=== PATIENT | female | born 1995 | race Caucasian/White ===

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

== ENCOUNTER → 2017-04-12 | Outpatient (CLI) | payer MEDICAID ==
[~2017-04-12] MED LIST changes: +DOCU100C37 PO; +IBUP-1780 PO; +OXYC-465 PO
[2017-04-12 09:50] LABS: PROTEIN/CREATININE RATIO 0.18
== END ==
LOC: LABNPT 08:30
PROVIDERS: ATTEND Obstetrics & Gynecology
DX: Z34.03 Encounter for supervision of normal first pregnancy, third trimester (principal); Z3A.00 Weeks of gestation of pregnancy not specified
CPT/HCPCS: 82570; 84156

== ENCOUNTER 2017-04-17 14:25 | Outpatient (CLI) | payer MEDICAID ==
[~2017-04-17] VITALS: Ht 167.6 cm; Wt 87.6 kg
[2017-04-17 14:20] VITALS: BP 119/73
[~2017-04-17 14:25] MED LIST changes: -DOCU100C37 PO; -IBUP-1780 PO; -OXYC-465 PO
[2017-04-17 14:40] VITALS: BP 125/77
[2017-04-17 15:00] VITALS: BP 120/75
[2017-04-17] MEDS ORDERED: D5 LR IV SOLUTION 1,000 ML IV ONE (15:00)
[2017-04-17] MEDS ORDERED: LOPERAMIDE 2 MG (IMODIUM) CAP PO PRN (15:00)
[2017-04-17 15:45] LABS: BASOPHILS % (AUTO) 0 % (0-10); EOSINOPHILS # (AUTO) 0.2 10^3/uL (0.0-0.3); EOSINOPHILS % (AUTO) 2 % (0-10); LYMPHOCYTES # (AUTO) 1.6 X 10^3 (1.0-4.0); LYMPHOCYTES % (AUTO) 16 % (12-44); MEAN CORPUSCULAR HEMOGLOBIN 29 PG (25-34); MEAN CORPUSCULAR HGB CONC 32 G/DL (32-36); MEAN CORPUSCULAR VOLUME 89 FL (80-99); MEAN PLATELET VOLUME 11.2 FL (7.4-10.4); MONOCYTES % (AUTO) 10 % (0-12); NEUTROPHILS # (AUTO) 7.2 X 10^3 (1.8-7.8); NEUTROPHILS % (AUTO) 71 % (42-75); PLATELET COUNT 215 10^3/uL (130-400); RED BLOOD COUNT 3.54 10^6/uL (4.35-5.85); WHITE BLOOD COUNT 10.1 10^3/uL (4.3-11.0)
[2017-04-17 15:50] VITALS: BP 126/77
[2017-04-17 16:02] LABS: ALANINE AMINOTRANSFERASE 7 U/L (0-55); ALBUMIN 3.2 GM/DL (3.2-4.5); ANION GAP 10 MMOL/L (5-14); ASPARTATE AMINO TRANSFERASE 14 U/L (5-34); BILIRUBIN,TOTAL 0.2 MG/DL (0.1-1.0); BLOOD UREA NITROGEN 9 MG/DL (7-18); BUN/CREATININE RATIO 13; CALCIUM 8.9 MG/DL (8.5-10.1); CARBON DIOXIDE 20 MMOL/L (21-32); CHLORIDE 110 MMOL/L (98-107); CREATININE SERUM 0.69 MG/DL (0.60-1.30); GFR ESTIMATED > 60; GLUCOSE 86 MG/DL (70-105); POTASSIUM 3.8 MMOL/L (3.6-5.0); SODIUM 140 MMOL/L (135-145); TOTAL PROTEIN 6.2 GM/DL (6.4-8.2)
[2017-04-17 16:20] VITALS: BP 129/81
[2017-04-17 16:25] LABS: BILIRUBIN,URINE NEGATIVE (NEGATIVE); KETONES,URINE NEGATIVE (NEGATIVE); LEUKOCYTE ESTERASE ,URINE 1+ (NEGATIVE); NITRITE,URINE NEGATIVE (NEGATIVE); PH,URINE 6 (5-9); PROTEIN,URINE 2+ (NEGATIVE); UROBILINOGEN,URINE NORMAL (NORMAL)
[2017-04-17 16:50] VITALS: BP 124/81
[2017-04-17] MEDS ORDERED: NITR-65 PO (17:07)
--- NOTE | 2017-04-19 11:58 | Physician Query-Final Dx ---
BOB SKINNER 04/19/17 1158: Clinic Account Progress/Dx Physician Query: Please give diagnosis Date of Service Apr 17, 2017 at 14:25 SHAKIR BOTELLO MD 04/29/17 0821: Clinic Account Progress/Dx DIAGNOSIS: Diagnosis viral gastroenteritis BOB SKINNER Apr 19, 2017 11:58 SHAKIR BOTELLO MD Apr 29, 2017 08:21
== END 2017-04-17 17:18 | disposition home or self-care (01) ==
LOC: WSo 14:25 → LDRP 14:25 → WSo 17:18
PROVIDERS: ATTEND Obstetrics & Gynecology
DX: O98.513 Other viral diseases complicating pregnancy, third trimester (principal); A08.4 Viral intestinal infection, unspecified; Z3A.37 37 weeks gestation of pregnancy
CPT/HCPCS: 36415; 80053; 81000; 85025; 87088; 96360; 96361; 99214

== ENCOUNTER → 2017-04-19 | Outpatient (CLI) | payer MEDICAID ==
[2017-04-19 10:33] LABS: PROTEIN/CREATININE RATIO 0.2
== END ==
LOC: LABNPT 10:15
PROVIDERS: ATTEND Obstetrics & Gynecology
DX: O14.03 Mild to moderate pre-eclampsia, third trimester (principal); Z3A.00 Weeks of gestation of pregnancy not specified
CPT/HCPCS: 82570; 84156

== ENCOUNTER 2017-04-21 11:30 | Inpatient (IN) | payer MEDICAID ==
[~2017-04-21] VITALS: Ht 167.6 cm; Wt 88.5 kg
[2017-04-21] VITALS (31 sets, daily range): BP systolic 122–172; BP diastolic 71–104
--- OUTSIDE RECORDS SUMMARY | 2017-04-21 11:38 | XMS REPORT ---
Author Author REAL RODRIGUEZ Organization [facility] Address [address] [place] [address] Care Team Providers Care Vp Marketing Name Role Phone TERI RODRIGUEZY Unavailable PROBLEMS Type Condition ICD9-CM Code KQZ19-BC Code Onset Dates Condition Status SNOMED Code Assessment Dysuria R30.0 Jul, Active 15402549 Assessment Vaginal discharge N89.8 Jul, Active 000689713 ALLERGIES Substance Reaction Event Type Date Status N.K.D.A. Unknown Non Drug Allergy Jul, Unknown SOCIAL HISTORY No smoking Hx information available PLAN OF CARE Activity Details Pending Test CULTURE, GENITAL Pending Test GC/CHLAM PROBE (STATE) prn,Reason: VITAL SIGNS Height 65 in 2016-08-10 Weight 154 lbs 2016-08-10 Heart Rate 90 bpm 2016-08-10 Respiratory Rate 20 2016-08-10 BMI 25.62 kg/m2 2016-08-10 Blood pressure systolic 110 mmHg 2016-08-10 Blood pressure diastolic 68 mmHg 2016-08-10 MEDICATIONS No Known Medications RESULTS Name Result Date Reference Range TEST, URINE (IN HOUSE) 2016-08-10 RESULTS negative Lot # [id number] Control + Exp date 11/14 TRICHOMONAS (IN HOUSE) 2016-08-10 TRICHOMONAS negative Control + Lot # [id number] Exp date 07/16 UA LONG DIP (IN HOUSE) 2016-08-10 Lot # [id number] Exp date 07/16 Clarity clear Color yellow Odor none GLU negative LINA negative KET negative SG 1.025 BLO trace-lysed pH 6.0 Protein negative URO 0.2 NIT negative OTIS negative Lot # Exp date BACTERIAL VAGINOSIS (IN HOUSE) 2016-08-10 RESULTS negative Control + Lot # [id number] Exp date 04/15 CULTURE, GENITAL 2016-08-10 Genital Culture, Routine Final report Result 1 GC/CHLAM PROBE (STATE) CHLAMYDIA GC PROCEDURES Procedure Date Ordered Related Diagnosis Body Site URINALYSIS, AUTO, W/O SCOPE Aug 10, 2016 CULTURE, BACTERIA, OTHER Aug 10, 2016 Office Visit, Est Pt., Level 3 Aug 10, 2016 TRICHOMONAS ASSAY W/OPTIC Aug 10, 2016 HOLM VAG, DNA, DIR PROBE Aug 10, 2016 URINE TEST Aug 10, 2016 No Charge Aug 10, 2016 IMMUNIZATIONS No Known Immunizations
--- OUTSIDE RECORDS SUMMARY | 2017-04-21 11:38 | XMS REPORT ---
Author Author ERGLA STEPHENSON Organization [employer] Address Unknown Phone Unavailable Care Team Providers Care Kitchen Stewardess Name Role Phone REGLA STEPHENSON CP Unavailable Allergies, Adverse Reactions, Alerts Substance Reaction Event Type N.K.D.A. Info Not Available Non Drug Allergy Problems Problem Type Condition Code Onset Dates Condition Status Problem Pain in joint, lower leg 719.46 Active Problem examination or test, negative result V72.41 Active Problem Other malaise and fatigue 780.79 Active Problem Problems related to high-risk sexual behavior V69.2 Active Problem Irregular menstrual cycle 626.4 Active Problem STATE HEP A (ADULT) DX V05.3 Active Problem Other acne 706.1 Active Problem Overweight 278.02 Active Problem Allergic rhinitis due to pollen 477.0 Active Problem Need for prophylactic vaccination and inoculation, Influenza V04.81 Active Assessment Bacterial infection A49.9 Active Assessment Routine gynecological examination V72.31 Active Assessment Well woman exam Z01.419 Active Medications No Known Medications Procedures Procedure Coding System Code Date No Charge CPT-4 84472 December 26, 2015 LAB NOT BILLED BY [facility] CPT-4 NOBLL December 26, 2015 SPECIMEN HANDLING CPT-4 17290 December 26, 2015 Office Visit, Est Pt., Level 4 CPT-4 47452 December 26, 2015 HOLM VAG, DNA, DIR PROBE CPT-4 64293 December 26, 2015 Vital Signs Date/Time: December 26, 2015 Temperature 98.3 F Weight 156.5 lbs Height 65 in BMI 26.04 Index Blood Pressure Diastolic 76 mmHg Blood Pressure Systolic 122 mmHg Cardiac Monitoring Heart Rate 88 bpm BMIPercentile 85.36 % Wt Percentile 87.08 % Results Name Result Date Reference Range Unit Abnormality Flag PDF Report ----PDF Report1 LC [id number] CULTURE, GENITAL ----Genital Culture, Routine Final report [id number] PAP TEST, HPV IF ASCUS ----. . [id number] Summary Purpose [employer] Submission
--- OUTSIDE RECORDS SUMMARY | 2017-04-21 11:38 | XMS REPORT ---
Author Author TANO WALSH [facility] Address [address] [place] [address] Care Team Providers Care Quality Checker Name Role Phone TANO WALSH Unavailable PROBLEMS Unknown Problems ALLERGIES Substance Reaction Event Type Date Status N.K.D.A. Unknown Non Drug Allergy Apr, Unknown SOCIAL HISTORY No smoking Hx information available PLAN OF CARE VITAL SIGNS MEDICATIONS Medication Instructions Dosage Frequency Start Date End Date Duration Status Bactrim DS 800-160 MG Orally Twice a day 1 tablet 12h Active RESULTS No Results PROCEDURES No Known procedures IMMUNIZATIONS No Known Immunizations
[2017-04-21] MEDS ORDERED: OXYTOCIN/NORMAL SALINE 500 ML IV SCH ×2 (11:50→17:02)
[2017-04-21] MEDS ORDERED: D5 LR IV SOLUTION 1,000 ML IV SCH (11:50)
[2017-04-21 12:14] LABS: MEAN PLATELET VOLUME 11.4 FL (7.4-10.4); RED BLOOD COUNT 3.6 10^6/uL (4.35-5.85); WHITE BLOOD COUNT 9.7 10^3/uL (4.3-11.0)
[2017-04-21 12:31] LABS: ALANINE AMINOTRANSFERASE 8 U/L (0-55); ALBUMIN 3.3 GM/DL (3.2-4.5); ANION GAP 10 MMOL/L (5-14); ASPARTATE AMINO TRANSFERASE 14 U/L (5-34); BILIRUBIN,TOTAL 0.3 MG/DL (0.1-1.0); BLOOD UREA NITROGEN 9 MG/DL (7-18); BUN/CREATININE RATIO 13; CALCIUM 8.8 MG/DL (8.5-10.1); CARBON DIOXIDE 19 MMOL/L (21-32); CHLORIDE 110 MMOL/L (98-107); CREATININE SERUM 0.69 MG/DL (0.60-1.30); GFR ESTIMATED > 60; GLUCOSE 79 MG/DL (70-105); LACTATE DEHYDROGENASE 168 U/L (125-220); POTASSIUM 3.9 MMOL/L (3.6-5.0); SODIUM 139 MMOL/L (135-145); TOTAL PROTEIN 6.4 GM/DL (6.4-8.2)
--- NOTE | 2017-04-21 12:39 | History & Physical ---
History and Physical Date Seen by Provider: Apr 21, 2017 Time Seen by Provider: 12:33 this patient is a 21-year-old A1 white female with an EDC of May 13 putting her at 38-2/7 weeks' gestation on this date. She was seen in clinic with elevated blood pressure of 134/90 compared to her usual pressures of 106 210 over 60s and 70s and 80s. She demonstrated 1+ protein in her urine. She has gained 42 pounds with this . she reported having a persistent headache and feeling of something is not quite right. GBS culture done on March 29, 2017 was negative. Allergies are none Medications are vitamins Past medical history, past surgical history, obstetric history, family history, and social histories are per the antepartum record HEENT exam is normal Neck is supple no lymphadenopathy and no thyromegaly Abdomen is gravid soft nontender nondistended Extremities show no clubbing cyanosis. There is no Homans sign. DTRs are 2+ to 3 over 4 globally. Pelvic exam in clinic cervix about 2 cm dilated 50 percent effaced -1 station quite anterior very soft recheck on exam now is minimally changed but now a good 2 cm area amniotomy is performed with release of copious clear fluid. scalp electrode was placed Laboratory Tests Test 04/21/17 12:00 04/21/17 12:10 Range/Units White Blood Count 9.7 4.3-11.0 10^3/uL Red Blood Count 3.60 L 4.35-5.85 10^6/uL Hemoglobin 10.5 L 11.5-16.0 G/DL Hematocrit 32 L 35-52 % Mean Corpuscular Volume 88 80-99 FL Mean Corpuscular Hemoglobin 29 25-34 PG Mean Corpuscular Hemoglobin Concent 33 32-36 G/DL Red Cell Distribution Width 12.0 10.0-14.5 % Platelet Count 214 130-400 10^3/uL Mean Platelet Volume 11.4 H 7.4-10.4 FL Sodium Level 139 135-145 MMOL/L Potassium Level 3.9 3.6-5.0 MMOL/L Chloride Level 110 H 98-107 MMOL/L Carbon Dioxide Level 19 L 21-32 MMOL/L Anion Gap 10 5-14 MMOL/L Blood Urea Nitrogen 9 7-18 MG/DL Creatinine 0.69 0.60-1.30 MG/DL Estimat Glomerular Filtration Rate > 60 BUN/Creatinine Ratio 13 Glucose Level 79 70-105 MG/DL Calcium Level 8.8 8.5-10.1 MG/DL Total Bilirubin 0.3 0.1-1.0 MG/DL Aspartate Amino Transf (AST/SGOT) 14 5-34 U/L Alanine Aminotransferase (ALT/SGPT) 8 0-55 U/L Alkaline Phosphatase 160 H 40-136 U/L Lactate Dehydrogenase 168 125-220 U/L Total Protein 6.4 6.4-8.2 GM/DL Albumin 3.3 3.2-4.5 GM/DL Laboratory Tests 04/21/17 12:00 Urine protein creatinine ratio was elevated 1 week ago in clinic and recheck is pending Assessment and plan 38 2/7 weeks' gestation with early preeclampsia. age and is admitted now been started on Pitocin for labor induction. Anticipation is for vaginal delivery. 38-2/7 weeks' gestation with preeclampsia Allergies and Home Medications Allergies Coded Allergies: No Known Drug Allergies (Unverified , 08/01/13) Home Medications Nitrofurantoin Monohyd/M-Cryst 100 Mg Capsule, 1 TAB PO BID for 7 Days Prescribed by: IZA AGUILAR on 04/17/17 1707 SHAKIR BOTELLO MD Apr 21, 2017 12:39
[2017-04-21 12:42] LABS: BASOPHILS % (AUTO) 0 % (0-10); EOSINOPHILS # (AUTO) 0.2 10^3/uL (0.0-0.3); EOSINOPHILS % (AUTO) 2 % (0-10); LYMPHOCYTES # (AUTO) 1.5 X 10^3 (1.0-4.0); LYMPHOCYTES % (AUTO) 16 % (12-44); MEAN CORPUSCULAR HEMOGLOBIN 29 PG (25-34); MEAN CORPUSCULAR HGB CONC 33 G/DL (32-36); MEAN CORPUSCULAR VOLUME 88 FL (80-99); MEAN PLATELET VOLUME 11.6 FL (7.4-10.4); MONOCYTES # (AUTO) 0.8 X 10^3 (0.0-1.0); MONOCYTES % (AUTO) 8 % (0-12); NEUTROPHILS # (AUTO) 7.1 X 10^3 (1.8-7.8); NEUTROPHILS % (AUTO) 73 % (42-75); PLATELET COUNT 209 10^3/uL (130-400); RED BLOOD COUNT 3.64 10^6/uL (4.35-5.85); RED CELL DISTRIBUTION WIDTH 12.1 % (10.0-14.5); WHITE BLOOD COUNT 9.6 10^3/uL (4.3-11.0)
[2017-04-21 12:43] LABS: PROTEIN/CREATININE RATIO 0.26
[2017-04-21] MEDS ORDERED: SUFENTA 0.6MCG/ML BUPIVA 0.125 100 ML ONE (13:27)
[2017-04-21] MEDS ORDERED: fentaNYL INJECTION 100 MCG/2 ML AMP ONE ×2 (13:40→18:12)
[2017-04-21] MEDS ORDERED: BUPIVACAINE 0.25% 30 ML (SENSORCAINE) VIAL ONE (13:40)
[2017-04-21] MEDS ORDERED: CATHETER FLUSH 10 ML SYR IV SCH (14:00)
[2017-04-21] MEDS ORDERED: LACTATED RINGERS 1,000 ML IV SCH ×2 (14:29→18:53)
[2017-04-21] MEDS ORDERED: diphenhydrAMINE 50 MG/ML INJ (BENADRYL) IV PRN ×2 (14:30→19:00)
[2017-04-21] MEDS ORDERED: NALOXONE 0.4 MG/ML 1 ML (NARCAN) VIAL IV PRN ×3 (14:30→19:00)
[2017-04-21] MEDS ORDERED: METOCLOPRAMIDE INJ 10 MG/2 ML (REGLAN) IV PRN (14:30)
[2017-04-21] MEDS ORDERED: EPIDURAL (SUFENTA 0.6MCG/ML BUPIVA 0.125%) 100 ML BAG EPI PRN (14:30)
[2017-04-21] MEDS ORDERED: ONDANSETRON 4 MG/2 ML (SDV) Z0FRAN IV PRN ×2 (14:30→19:00)
[2017-04-21] MEDS ORDERED: ceFAZolin INJECTION 2,000 MG in NS (IVPB) 50 ML IV NR (17:00)
[2017-04-21] MEDS ORDERED: LACTATED RINGERS 1,000 ML IV PRN (17:04)
[2017-04-21] MEDS ORDERED: AMPICILLIN 2000 MG INJECTION (IM/IV) ONE (17:09)
[2017-04-21] MEDS ORDERED: NS (IVPB) 50 ML ONE (17:10)
[2017-04-21] MEDS ORDERED: D5 LR IV SOLUTION 1,000 ML IV ONE (17:10)
--- NOTE | 2017-04-21 17:10 | Progress Note-Standard ---
Standard Progress Note Progress Notes/Assess & Plan Date Seen by Provider: Apr 21, 2017 Time Seen by Provider: 17:07 Progress/Assessment & Plan was called to see patient secondary to nonreassuring heart rate pattern. Patient has not had a reassuring acceleration for the past 2-1/2-3 hours. She has not had specific D cells of the one episode of 5 fairly deep variables. She does have some variability. There were no accelerations with scalp stimulation.. Patient blood pressures have been rising even since her epidural was placed in the range of the 150s up to almost 160 over the 100-110 range. Laboratory Tests Test 04/21/17 12:00 04/21/17 12:10 Range/Units White Blood Count 9.6 4.3-11.0 10^3/uL Red Blood Count 3.64 L 4.35-5.85 10^6/uL Hemoglobin 10.5 L 11.5-16.0 G/DL Hematocrit 32 L 35-52 % Mean Corpuscular Volume 88 80-99 FL Mean Corpuscular Hemoglobin 29 25-34 PG Mean Corpuscular Hemoglobin Concent 33 32-36 G/DL Red Cell Distribution Width 12.1 10.0-14.5 % Platelet Count 209 130-400 10^3/uL Mean Platelet Volume 11.6 H 7.4-10.4 FL Neutrophils (%) (Auto) 73 42-75 % Lymphocytes (%) (Auto) 16 12-44 % Monocytes (%) (Auto) 8 0-12 % Eosinophils (%) (Auto) 2 0-10 % Basophils (%) (Auto) 0 0-10 % Neutrophils # (Auto) 7.1 1.8-7.8 X 10^3 Lymphocytes # (Auto) 1.5 1.0-4.0 X 10^3 Monocytes # (Auto) 0.8 0.0-1.0 X 10^3 Eosinophils # (Auto) 0.2 0.0-0.3 10^3/uL Basophils # (Auto) 0.0 0.0-0.1 10^3/uL Sodium Level 139 135-145 MMOL/L Potassium Level 3.9 3.6-5.0 MMOL/L Chloride Level 110 H 98-107 MMOL/L Carbon Dioxide Level 19 L 21-32 MMOL/L Anion Gap 10 5-14 MMOL/L Blood Urea Nitrogen 9 7-18 MG/DL Creatinine 0.69 0.60-1.30 MG/DL Estimat Glomerular Filtration Rate > 60 BUN/Creatinine Ratio 13 Glucose Level 79 70-105 MG/DL Calcium Level 8.8 8.5-10.1 MG/DL Total Bilirubin 0.3 0.1-1.0 MG/DL Aspartate Amino Transf (AST/SGOT) 14 5-34 U/L Alanine Aminotransferase (ALT/SGPT) 8 0-55 U/L Alkaline Phosphatase 160 H 40-136 U/L Lactate Dehydrogenase 168 125-220 U/L Total Protein 6.4 6.4-8.2 GM/DL Albumin 3.3 3.2-4.5 GM/DL Urine Protein 57 H 6-12 MG/DL Urine Creatinine 223 H 30-125 MG/DL Urine Protein/Creatinine Ratio 0.26 Cervical exam has shown little foreign exchange clerk the last 2 and half hours assessment and plan term at 38-1/7 weeks gestation with polyhydramnios preeclampsia now with nonreassuring heart rate pattern. Plan is to proceed with delivery now SHAKIR BOTELLO MD Apr 21, 2017 5:10 pm
[2017-04-21] MEDS ORDERED: fentaNYL INJECTION 100 MCG/2 ML AMP IVP PRN (17:15)
[2017-04-21] MEDS ORDERED: TETANUS,DIPTH,PERTUSS P/F (BOOSTRIX) 0.5 ML VIAL IM ONE (17:15)
[2017-04-21] MEDS ORDERED: CITRIC ACID/SOB CIT (BICITRA) 30 ML UDC PO ONE (17:15)
[2017-04-21] MEDS ORDERED: MEASLES,MUMPS,RUBELLA 1 EA INJ SC ONE (17:15)
[2017-04-21] MEDS ORDERED: METOCLOPRAMIDE INJ 10 MG/2 ML (REGLAN) IV ONE (17:15)
[2017-04-21] MEDS ORDERED: FAMOTIDINE 20MG/2ML IV (PEPCID) IV ONE (17:15)
[2017-04-21] MEDS ORDERED: oxyCODONE/APAP 10/325MG (PERCOCET 10) TABLET PO PRN (17:15)
[2017-04-21] MEDS ORDERED: ONDANSETRON 4 MG/2 ML (SDV) Z0FRAN IVP PRN ×2 (17:15→19:00)
[2017-04-21] MEDS: metroNIDAZOLE 500MG/100ML IVPB 100 ML IV NR ×2 (17:20→18:00)
[2017-04-21] MEDS ORDERED: LIDOCAINE PF 2% 5 ML (XYLOCAINE) VIAL ONE (17:49)
[2017-04-21] MEDS ORDERED: BUPIVACAINE 0.5% 30 ML (SENSORCAINE) VIAL ONE (17:49)
[2017-04-21] MEDS ORDERED: OXYTOCIN/NORMAL SALINE 1,000 ML IV ONE (17:57)
[2017-04-21] MEDS ORDERED: LACTATED RINGERS 1,000 ML IV ONE (17:57)
[2017-04-21] MEDS ORDERED: ONDANSETRON 4 MG/2 ML (SDV) Z0FRAN ONE (17:58)
[2017-04-21] MEDS ORDERED: KETAMINE HCL 100 MG/ML 5 ML VIAL ONE (18:15)
[2017-04-21] MEDS: MEPERIDINE (DEMEROL) INJ 50 MG/ML IVP PRN ×2 (19:00→19:10)
[2017-04-21] MEDS ORDERED: morphine INJ 10 MG/ML 1ML (SYR OR VIAL) IVP PRN (19:00)
[2017-04-21] MEDS: KETOROLAC 30 MG/ML VIAL IVP SCH (23:29)
[2017-04-22] VITALS: BP 139/97
--- NOTE | 2017-04-22 01:13 | OPERATIVE REPORT ---
DATE OF SERVICE: 04/21/2017 PREOPERATIVE DIAGNOSIS: Term at 38-1/7 weeks' gestation with preeclampsia and with nonreassuring heart rate pattern. POSTOPERATIVE DIAGNOSIS: Term at 38-1/7 weeks' gestation with preeclampsia and with nonreassuring heart rate pattern with nuchal cord. OPERATIVE PROCEDURE: Primary low transverse delivery of a viable male infant with Apgars of 7 and 8 at 1 and 5 minutes respectively, weight of 7 pounds, cord blood pH was 7.29. OPERATIVE DESCRIPTION: With the patient in the supine position under satisfactory epidural anesthesia, the patient was prepped and draped in the usual fashion for abdominal surgery. Car catheter had been placed in the urinary bladder. During labor that was left to dependent drainage. A Pfannenstiel incision was made through the skin with a scalpel in usual manner. A bladder retractor was placed into position and a clean scalpel was sued to make a 4 cm hysterotomy incision transversely across lower uterine segment. The membranes were intact and bulged up through the incision, which was extended bluntly transversely. The membrane was interrupted with an Allis clamp releasing a small amount of clear fluid. The amniotomy had been performed earlier in the day while the patient was laboring. A vigorous viable male was delivered via the uterine incision. Infant had Apgars of 7 and 8 at 1 and 5 minutes respectively, weight of 7 pounds, and a cord blood pH of 7.29. The was bulb suctioned on delivery of the head. Nuchal cord was easily released and then the delivery completed. The infant bulb suctioned as the cord was doubly clamped and cut and the infant passed to Dr. Luz, the chocolate dipper in attendance for delivery. Placenta delivered spontaneously [place]. It was normal with a 3-vessel cord. The uterus was then exteriorized and interior wiped clean with a wet laparotomy sponge. The uterine incision was then closed with a running locked suture of 2-0 Vicryl. Uterus was somewhat atonic, responding somewhat to the Pitocin. The patient had labored at least 5 hours on Pitocin. Decision was made to go ahead with a modified B-Ace suture using 2-0 chronic sutures and placed in modified fashion to compress the uterus to minimize additional blood loss. The uterus was then returned to abdominal cavity. All blood clot and debris removed from the abdominal cavity. There was some bleeding noted inferior to the right fallopian tube. This was ligated with a [id number] suture of 2-0 Vicryl to good hemostasis and then, the abdominal cavity was cleared of all blood clot and debris and then, the anterior peritoneum and rectus muscle were closed with a suture of 2-0 Vicryl in two layers. The rectus fascia was closed with two sutures of 2-0 Vicryl. The subcutaneous tissue was closed with 2-0 Vicryl suture and then, the skin was stapled. Sponge and needle counts were correct at the end of the procedure. Estimated blood loss for the procedure was around 700 mL. The patient tolerated the procedure well and was transferred to the recovery room in stable condition. The infant was taken stable to the full term nursery under the care of Dr. Luz. Job ID: [id number] DocumentID: [id number] Dictated Date: 04/21/2017 19:12:04 Maritime Pilot Date: 04/22/2017 01:13:25 Dictated By: SHAKIR BOTELLO MD
[2017-04-22 04:00] VITALS: BP 138/92
[2017-04-22] MEDS: KETOROLAC 30 MG/ML VIAL IVP SCH ×2 (05:47→13:28)
--- NOTE | 2017-04-22 07:43 | Progress Note-Standard ---
Standard Progress Note Progress Notes/Assess & Plan Date Seen by Provider: Apr 22, 2017 Time Seen by Provider: 07:41 Progress/Assessment & Plan was called to see patient secondary to nonreassuring heart rate pattern. Patient has not had a reassuring acceleration for the past 2-1/2-3 hours. She has not had specific D cells of the one episode of 5 fairly deep variables. She does have some variability. There were no accelerations with scalp stimulation.. Patient blood pressures have been rising even since her epidural was placed in the range of the 150s up to almost 160 over the 100-110 range. Laboratory Tests Test 04/21/17 12:00 04/21/17 12:10 Range/Units White Blood Count 9.6 4.3-11.0 10^3/uL Red Blood Count 3.64 L 4.35-5.85 10^6/uL Hemoglobin 10.5 L 11.5-16.0 G/DL Hematocrit 32 L 35-52 % Mean Corpuscular Volume 88 80-99 FL Mean Corpuscular Hemoglobin 29 25-34 PG Mean Corpuscular Hemoglobin Concent 33 32-36 G/DL Red Cell Distribution Width 12.1 10.0-14.5 % Platelet Count 209 130-400 10^3/uL Mean Platelet Volume 11.6 H 7.4-10.4 FL Neutrophils (%) (Auto) 73 42-75 % Lymphocytes (%) (Auto) 16 12-44 % Monocytes (%) (Auto) 8 0-12 % Eosinophils (%) (Auto) 2 0-10 % Basophils (%) (Auto) 0 0-10 % Neutrophils # (Auto) 7.1 1.8-7.8 X 10^3 Lymphocytes # (Auto) 1.5 1.0-4.0 X 10^3 Monocytes # (Auto) 0.8 0.0-1.0 X 10^3 Eosinophils # (Auto) 0.2 0.0-0.3 10^3/uL Basophils # (Auto) 0.0 0.0-0.1 10^3/uL Sodium Level 139 135-145 MMOL/L Potassium Level 3.9 3.6-5.0 MMOL/L Chloride Level 110 H 98-107 MMOL/L Carbon Dioxide Level 19 L 21-32 MMOL/L Anion Gap 10 5-14 MMOL/L Blood Urea Nitrogen 9 7-18 MG/DL Creatinine 0.69 0.60-1.30 MG/DL Estimat Glomerular Filtration Rate > 60 BUN/Creatinine Ratio 13 Glucose Level 79 70-105 MG/DL Calcium Level 8.8 8.5-10.1 MG/DL Total Bilirubin 0.3 0.1-1.0 MG/DL Aspartate Amino Transf (AST/SGOT) 14 5-34 U/L Alanine Aminotransferase (ALT/SGPT) 8 0-55 U/L Alkaline Phosphatase 160 H 40-136 U/L Lactate Dehydrogenase 168 125-220 U/L Total Protein 6.4 6.4-8.2 GM/DL Albumin 3.3 3.2-4.5 GM/DL Urine Protein 57 H 6-12 MG/DL Urine Creatinine 223 H 30-125 MG/DL Urine Protein/Creatinine Ratio 0.26 Cervical exam has shown little chemical cell changer the last 2 and half hours assessment and plan term at 38-1/7 weeks gestation with polyhydramnios preeclampsia now with nonreassuring heart rate pattern. Plan is to proceed with delivery now April 22, 2017 This patient is without complaint. She is ambulating, she is voiding after some delay, has good pain control, tolerating by mouth well, denies chest pain, denies shortness of breath, denies headache, denies nausea vomiting. Vital Signs Date Time Temp Pulse Resp B/P (MAP) Pulse Ox O2 Delivery O2 Flow Rate FiO2 04/22/17 04:00 99.1 120 18 138/92 98 Room Air 04/22/17 00:00 97.7 108 17 139/97 96 Room Air 04/21/17 19:40 96.8 105 16 141/91 100 Room Air 04/21/17 17:53 Room Air 04/21/17 17:45 80 18 138/84 Room Air 04/21/17 17:30 88 18 133/85 Room Air 04/21/17 17:15 81 18 151/90 96 Room Air 04/21/17 17:00 77 18 164/86 96 Room Air 04/21/17 16:45 97.2 73 18 147/85 96 Room Air 04/21/17 16:30 75 18 145/77 99 Room Air 04/21/17 16:15 75 18 145/77 99 Room Air 04/21/17 16:00 78 18 157/104 97 Room Air 04/21/17 15:45 79 18 147/104 98 Room Air 04/21/17 15:30 80 18 131/89 97 Room Air 04/21/17 15:15 82 18 139/93 97 Room Air 04/21/17 15:00 78 18 133/88 98 Room Air 04/21/17 14:45 85 18 131/79 98 Room Air 04/21/17 14:38 93 18 131/88 98 Room Air 04/21/17 14:30 87 18 122/83 97 Room Air 04/21/17 14:24 98.2 117 122/82 99 Room Air 04/21/17 14:20 85 134/90 99 Room Air 04/21/17 14:18 98 129/83 99 Room Air 04/21/17 14:15 85 18 135/85 99 Room Air 04/21/17 14:10 90 141/88 99 Room Air 04/21/17 14:00 93 18 172/104 99 Room Air 04/21/17 13:55 86 164/97 04/21/17 13:45 118 18 144/71 99 Room Air 04/21/17 13:30 76 18 138/84 Room Air 04/21/17 13:15 74 18 149/81 Room Air 04/21/17 13:00 74 18 150/102 Room Air 04/21/17 12:45 72 18 142/99 Room Air 04/21/17 12:30 81 18 145/98 Room Air 04/21/17 12:15 98.4 75 18 132/88 Room Air 04/21/17 11:40 96 18 141/93 Room Air vital signs are stable. Patient is afebrile. Pulse is a little bit high. Pressures are somewhat labile but generally improving. Abdomen is benign. Fundus is firm below the umbilicus and nontender. Incision is clean dry and intact. Extremities show no clubbing cyanosis. There is no Homans sign. There is some pretibial pitting edema that is normal. Assessment and plan postoperative day number 1 status post primary doing well. Plan for routine convalescence care today and consider discharge home tomorrow.close attention to the patient's vital signs SHAKIR BOTELLO MD Apr 22, 2017 7:43 am
[2017-04-22] MEDS ORDERED: IBUP-1780 PO (07:45)
[2017-04-22] MEDS ORDERED: OXYC-465 PO (07:45)
[2017-04-22] MEDS ORDERED: DOCU100C37 PO (07:45)
--- NOTE | 2017-04-22 07:47 | Discharge Instructions ---
Discharge Instructions Discharge Medications New, Converted or Re-Newed RX: RX on Chart Patient Instructions Patient Instructions: as directed Return to The [facility] For: as directed Activity & Diet Discharge Diet: No Restrictions Activity as Tolerated: No Orders-Post D/C & Referrals Follow Up Appt: RTC 1 week for incision check. Call to make follow up appt. for patient in 4 weeks. Wound Care: Remove maru, apply benzoin and steri strips. Activity Per routine post instructions. Please call in RX to patient pharmacy. Diet as tolerated Patient may shower or tub bathe as desired. Continue home meds SHAKIR BOTELLO MD Apr 22, 2017 7:47 am
[2017-04-22 08:00] VITALS: BP 132/84
[2017-04-22] MEDS: DOCUSATE SODIUM 100 MG (COLACE) CAP PO SCH ×2 (08:42→19:33)
[2017-04-22 12:00] VITALS: BP 138/82
--- NOTE | 2017-04-22 13:05 | Anesthesia-Regional Post-Op ---
Regional Patient Condition Mental Status: Alert, Oriented x3 Circulation: Same as Pre-Op Headache: Absent Sensation: Full Recovery Motor Block: Absent Post Op Complications Complications None Follow Up Care/Instructions Patient Instructions None needed. Anesthesia/Patient Condition Patient is doing well, no complaints, stable vital signs, no apparent adverse anesthesia problems. No complications reported per nursing. DELON BENAVIDES CRNA Apr 22, 2017 13:05
[2017-04-22 16:20] VITALS: BP 142/94
[2017-04-22] MEDS: IBUPROFEN 800 MG (MOTRIN) TAB PO SCH (19:33)
[2017-04-22 19:35] VITALS: BP 135/96
[2017-04-23] MEDS: IBUPROFEN 800 MG (MOTRIN) TAB PO SCH ×2 (02:09→10:11)
[2017-04-23 02:10] VITALS: BP 151/101
[2017-04-23 02:30] VITALS: BP 155/107
--- NOTE | 2017-04-23 07:30 | Progress Note-Standard ---
Standard Progress Note Progress Notes/Assess & Plan Date Seen by Provider: Apr 23, 2017 Time Seen by Provider: 07:28 Progress/Assessment & Plan was called to see patient secondary to nonreassuring heart rate pattern. Patient has not had a reassuring acceleration for the past 2-1/2-3 hours. She has not had specific D cells of the one episode of 5 fairly deep variables. She does have some variability. There were no accelerations with scalp stimulation.. Patient blood pressures have been rising even since her epidural was placed in the range of the 150s up to almost 160 over the 100-110 range. Laboratory Tests Test 04/21/17 12:00 04/21/17 12:10 Range/Units White Blood Count 9.6 4.3-11.0 10^3/uL Red Blood Count 3.64 L 4.35-5.85 10^6/uL Hemoglobin 10.5 L 11.5-16.0 G/DL Hematocrit 32 L 35-52 % Mean Corpuscular Volume 88 80-99 FL Mean Corpuscular Hemoglobin 29 25-34 PG Mean Corpuscular Hemoglobin Concent 33 32-36 G/DL Red Cell Distribution Width 12.1 10.0-14.5 % Platelet Count 209 130-400 10^3/uL Mean Platelet Volume 11.6 H 7.4-10.4 FL Neutrophils (%) (Auto) 73 42-75 % Lymphocytes (%) (Auto) 16 12-44 % Monocytes (%) (Auto) 8 0-12 % Eosinophils (%) (Auto) 2 0-10 % Basophils (%) (Auto) 0 0-10 % Neutrophils # (Auto) 7.1 1.8-7.8 X 10^3 Lymphocytes # (Auto) 1.5 1.0-4.0 X 10^3 Monocytes # (Auto) 0.8 0.0-1.0 X 10^3 Eosinophils # (Auto) 0.2 0.0-0.3 10^3/uL Basophils # (Auto) 0.0 0.0-0.1 10^3/uL Sodium Level 139 135-145 MMOL/L Potassium Level 3.9 3.6-5.0 MMOL/L Chloride Level 110 H 98-107 MMOL/L Carbon Dioxide Level 19 L 21-32 MMOL/L Anion Gap 10 5-14 MMOL/L Blood Urea Nitrogen 9 7-18 MG/DL Creatinine 0.69 0.60-1.30 MG/DL Estimat Glomerular Filtration Rate > 60 BUN/Creatinine Ratio 13 Glucose Level 79 70-105 MG/DL Calcium Level 8.8 8.5-10.1 MG/DL Total Bilirubin 0.3 0.1-1.0 MG/DL Aspartate Amino Transf (AST/SGOT) 14 5-34 U/L Alanine Aminotransferase (ALT/SGPT) 8 0-55 U/L Alkaline Phosphatase 160 H 40-136 U/L Lactate Dehydrogenase 168 125-220 U/L Total Protein 6.4 6.4-8.2 GM/DL Albumin 3.3 3.2-4.5 GM/DL Urine Protein 57 H 6-12 MG/DL Urine Creatinine 223 H 30-125 MG/DL Urine Protein/Creatinine Ratio 0.26 Cervical exam has shown little record changer the last 2 and half hours assessment and plan term at 38-1/7 weeks gestation with polyhydramnios preeclampsia now with nonreassuring heart rate pattern. Plan is to proceed with delivery now April 22, 2017 This patient is without complaint. She is ambulating, she is voiding after some delay, has good pain control, tolerating by mouth well, denies chest pain, denies shortness of breath, denies headache, denies nausea vomiting. Vital Signs Date Time Temp Pulse Resp B/P (MAP) Pulse Ox O2 Delivery O2 Flow Rate FiO2 04/22/17 04:00 99.1 120 18 138/92 98 Room Air 04/22/17 00:00 97.7 108 17 139/97 96 Room Air 04/21/17 19:40 96.8 105 16 141/91 100 Room Air 04/21/17 17:53 Room Air 04/21/17 17:45 80 18 138/84 Room Air 04/21/17 17:30 88 18 133/85 Room Air 04/21/17 17:15 81 18 151/90 96 Room Air 04/21/17 17:00 77 18 164/86 96 Room Air 04/21/17 16:45 97.2 73 18 147/85 96 Room Air 04/21/17 16:30 75 18 145/77 99 Room Air 04/21/17 16:15 75 18 145/77 99 Room Air 04/21/17 16:00 78 18 157/104 97 Room Air 04/21/17 15:45 79 18 147/104 98 Room Air 04/21/17 15:30 80 18 131/89 97 Room Air 04/21/17 15:15 82 18 139/93 97 Room Air 04/21/17 15:00 78 18 133/88 98 Room Air 04/21/17 14:45 85 18 131/79 98 Room Air 04/21/17 14:38 93 18 131/88 98 Room Air 04/21/17 14:30 87 18 122/83 97 Room Air 04/21/17 14:24 98.2 117 122/82 99 Room Air 04/21/17 14:20 85 134/90 99 Room Air 04/21/17 14:18 98 129/83 99 Room Air 04/21/17 14:15 85 18 135/85 99 Room Air 04/21/17 14:10 90 141/88 99 Room Air 04/21/17 14:00 93 18 172/104 99 Room Air 04/21/17 13:55 86 164/97 04/21/17 13:45 118 18 144/71 99 Room Air 04/21/17 13:30 76 18 138/84 Room Air 04/21/17 13:15 74 18 149/81 Room Air 04/21/17 13:00 74 18 150/102 Room Air 04/21/17 12:45 72 18 142/99 Room Air 04/21/17 12:30 81 18 145/98 Room Air 04/21/17 12:15 98.4 75 18 132/88 Room Air 04/21/17 11:40 96 18 141/93 Room Air vital signs are stable. Patient is afebrile. Pulse is a little bit high. Pressures are somewhat labile but generally improving. Abdomen is benign. Fundus is firm below the umbilicus and nontender. Incision is clean dry and intact. Extremities show no clubbing cyanosis. There is no Homans sign. There is some pretibial pitting edema that is normal. Assessment and plan postoperative day number 1 status post primary doing well. Plan for routine convalescence care today and consider discharge home tomorrow.close attention to the patient's vital signs April 23, 2017 Patient is without complaint. She is ambulating, voiding, tolerating fairly well, has good pain control, patient is requesting discharge home. Vital Signs Date Time Temp Pulse Resp B/P (MAP) Pulse Ox O2 Delivery O2 Flow Rate FiO2 04/23/17 02:30 103 18 155/107 Room Air 04/23/17 02:10 98.0 100 18 151/101 100 Room Air 04/22/17 19:35 97.8 101 18 135/96 97 Room Air 04/22/17 16:20 97.9 88 18 142/94 99 Room Air 04/22/17 12:00 97.7 99 18 138/82 98 Room Air 04/22/17 08:00 98.4 96 18 132/84 96 Room Air vital signs are stable. Blood pressures have been again somewhat labile but in an acceptable range. Her urine output has increased The abdomen is benign. Fundus is firm below the umbilicus and nontender. Incision is clean dry and intact. She Tiffanie no clubbing cyanosis. There is no Homans sign. There is some pretibial pitting edema that is normal. Assessment and plan postoperative day number 2 status post primary delivery. Patient is doing well. Her blood pressures are somewhat labile we will plan on discharge home today with follow-up in clinic and repeat her blood pressure check. Patient is given precautions for signs symptoms and indications of preeclampsia. Final Diagnosis term operative delivery SHAKIR BOTELLO MD Apr 23, 2017 7:30 am
[2017-04-23] MEDS: DOCUSATE SODIUM 100 MG (COLACE) CAP PO SCH (10:12)
== END 2017-04-23 14:10 | disposition home or self-care (01) | DRG 765 ==
LOC: LDRP 11:30
PROVIDERS: ADMIT Obstetrics & Gynecology; ATTEND Obstetrics & Gynecology
PROC: 10D00Z1 Extraction of Products of Conception, Low, Open Approach (ICD-10-PCS; principal; 2017-04-21 18:00)
DX: O14.93 Unspecified pre-eclampsia, third trimester (principal); O76 Abnormality in fetal heart rate and rhythm complicating labor and delivery; O40.3XX0 Polyhydramnios, third trimester, not applicable or unspecified; O69.81X0 Labor and delivery complicated by cord around neck, without compression, not applicable or unspecified; O75.89 Other specified complications of labor and delivery; Z3A.38 38 weeks gestation of pregnancy; Z37.0 Single live birth
CPT/HCPCS: 36415; 80053; 82570; 83615; 84156; 85025; 86850; 86900; 86901; 94664

== ENCOUNTER → 2019-02-24 | Outpatient (CLI) | payer SELFPAY ==
[~2019-02-24] MED LIST changes: +DOCU100C37 PO; +IBUP-1780 PO; +OXYC-465 PO
--- NOTE | 2019-02-24 15:10 | Diagnostic Imaging Report ---
PROCEDURE: US Thyroid. TECHNIQUE: Multiple real-time grayscale images were obtained of the thyroid in various projections. INDICATION: Thyroid enlargement. FINDINGS: The right lobe is 4.7 x 1.4 x 1.9 cm and the left lobe 4.7 x 1.2 x 1.5 cm. Thyroidal echotexture is homogeneous and normal. Color Doppler blood flow is normal. There is no solid or cystic mass. No abnormal calcifications. IMPRESSION: Unremarkable sonographic appearance of the nonfocal thyroid. Dictated by: Dictated on workstation # [id number]
== END ==
LOC: RAD 10:25
PROVIDERS: ATTEND Nurse Practitioner Family
DX: E04.9 Nontoxic goiter, unspecified (principal)
CPT/HCPCS: 76536

== ENCOUNTER → 2020-07-01 | Outpatient (CLI) | payer MEDICAID ==
[~2020-07-01] MED LIST changes: -OXYC-465 PO; +OXYC-556 PO
--- NOTE | 2020-07-01 14:08 | Diagnostic Imaging Report ---
PROCEDURE: US OB SINGLE FETUS <14 WKS. TECHNIQUE: Multiple real-time grayscale images were obtained over the gravid uterus in various projections. INDICATION: dating. FINDINGS: There is a single live IUP measuring approximately 10 weeks 2 days gestational age. heart rate was recorded 176 bpm. No hal-gestational sac hemorrhage is detected. Adnexa are unremarkable. No adnexal mass or free fluid is seen. IMPRESSION: Single live IUP approximately 10 weeks 2 days gestational age. Estimated date of confinement sonographically is 01/25/2021. Dictated by: Dictated on workstation # [id number]
== END ==
LOC: RAD 12:46
PROVIDERS: ATTEND Family Medicine
DX: Z34.91 Encounter for supervision of normal pregnancy, unspecified, first trimester (principal); Z3A.10 10 weeks gestation of pregnancy
CPT/HCPCS: 76801

== ENCOUNTER 2021-01-06 05:42 | Outpatient (CLI) | payer MEDICAID ==
[~2021-01-06] VITALS: Ht 167.7 cm; Wt 97.3 kg
[2021-01-06] MEDS ORDERED: PREN-8 PO (10:27)
== END 2021-01-06 11:09 | disposition home or self-care (01) ==
LOC: PREOP 05:42
PROVIDERS: ATTEND Obstetrics & Gynecology
DX: Z01.818 Encounter for other preprocedural examination (principal)

== ENCOUNTER 2021-01-13 05:42 | Inpatient (IN) | payer MEDICAID ==
[~2021-01-13] VITALS: Ht 165.1 cm; Wt 95.3 kg
[2021-01-13] VITALS (9 sets, daily range): BP systolic 93–135; BP diastolic 69–88
[~2021-01-13 05:42] MED LIST changes: +CITRIC ACID/SOB CIT (BICITRA) 30 ML UDC ONE; +FAMOTIDINE 20MG/2ML IV (PEPCID) ONE; +METOCLOPRAMIDE INJ 10 MG/2 ML (REGLAN) ONE; +PREN-8 PO; +ceFAZolin 2 GM IV Premixed 50 ML ONE; +metroNIDAZOLE 500MG/100ML IVPB 100 ML ONE
[2021-01-13] MEDS ORDERED: metroNIDAZOLE 500MG/100ML IVPB 100 ML IV ONE ×2 (06:00→07:30)
[2021-01-13] MEDS ORDERED: FAMOTIDINE 20MG/2ML IV (PEPCID) IV ONE (06:00)
[2021-01-13] MEDS ORDERED: METOCLOPRAMIDE INJ 10 MG/2 ML (REGLAN) IV ONE (06:00)
[2021-01-13] MEDS ORDERED: ceFAZolin 2 GM IV Premixed 50 ML IV ONE (06:00)
[2021-01-13] MEDS ORDERED: CITRIC ACID/SOB CIT (BICITRA) 30 ML UDC PO ONE (06:00)
[2021-01-13] MEDS ORDERED: LACTATED RINGERS 1,000 ML IV SCH ×2 (06:00)
[2021-01-13 06:20] LABS: BASOPHILS # (AUTO) 0.1 10^3/uL (0.0-0.1); BASOPHILS % (AUTO) 1 % (0-10); EOSINOPHILS # (AUTO) 0.1 10^3/uL (0.0-0.3); EOSINOPHILS % (AUTO) 1 % (0-10); HEMATOCRIT 31 % (35-52); HEMOGLOBIN 10.2 g/dL (11.5-16.0); LYMPHOCYTES # (AUTO) 2.2 10^3/uL (1.0-4.0); LYMPHOCYTES % (AUTO) 24 % (12-44); MEAN CORPUSCULAR HEMOGLOBIN 28 pg (25-34); MEAN CORPUSCULAR HGB CONC 33 g/dL (32-36); MEAN CORPUSCULAR VOLUME 85 fL (80-99); MEAN PLATELET VOLUME 10.7 fL (9.0-12.2); MONOCYTES # (AUTO) 0.8 10^3/uL (0.0-1.0); MONOCYTES % (AUTO) 9 % (0-12); NEUTROPHILS # (AUTO) 5.9 10^3/uL (1.8-7.8); NEUTROPHILS % (AUTO) 64 % (42-75); PLATELET COUNT 250 10^3/uL (130-400); WHITE BLOOD COUNT 9.2 10^3/uL (4.3-11.0)
[2021-01-13] MEDS ORDERED: fentaNYL INJ 100 MCG/2 ML AMP ONE (06:54)
[2021-01-13] MEDS ORDERED: OXYTOCIN PRE-MIX DRIP 1,000 ML IV ONE (06:54)
[2021-01-13] MEDS ORDERED: BUPIVACAINE 0.5% 30 ML (SENSORCAINE) VIAL ONE (06:55)
--- NOTE | 2021-01-13 07:25 | History & Physical ---
History and Physical Date Seen by Provider: January 13, 2021 Time Seen by Provider: 07:24 This patient is a 25-year-old 3 para 2 2 white female currently at 38 weeks gestation. Her is complicated by PIH. She has not demonstrated overt preeclampsia. She denies rupture membranes or bleeding. She is admitted now for repeat delivery. Her GBS culture after 35 weeks gestation was positive. Allergies are none Medications are vitamins Medical social and surgical history is all per the antepartum record HEENT exam is normal Neck is supple no lymphadenopathy no thyromegaly Abdomen is gravid soft nontender nondistended Extremities show no clubbing or cyanosis. There is no Homans' sign. Pelvic exam is deferred Assessment and plan term at 38 weeks gestation with a positive GBS culture and with PIH and with 2 previous C-sections. Patient is admitted now for repeat delivery 38 weeks gestation with PIH and 2 previous C-sections Allergies and Home Medications Allergies Coded Allergies: No Known Drug Allergies (Unverified , 01/13/21) Home Medications Vit W-Ca,Fe,FA(<1 mg) 1 Each Tablet, 1 EACH PO DAILY, (Reported) Last Action: Reviewed Patient Home Medication List Home Medication List Reviewed: Yes SHAKIR BOTELLO MD January 13, 2021 07:25
[2021-01-13] MEDS ORDERED: D5 LR IV SOLUTION 1,000 ML IV SCH ×2 (07:30→08:30)
[2021-01-13] MEDS ORDERED: ceFAZolin INJECTION 2,000 MG in WATER (STERILE) FOR INJECTION 10 ML IV ONE (07:30)
[2021-01-13] MEDS ORDERED: PHENYLEPHRINE 100 MCG/ML 10 ML (ANESTHESIA) SYR ONE (07:58)
[2021-01-13] MEDS: OXYTOCIN PRE-MIX DRIP 500 ML IV SCH ×2 (08:10→13:20)
[2021-01-13] MEDS ORDERED: TETANUS,DIPTH,PERTUSS P/F (BOOSTRIX) 0.5 ML VIAL IM ONE (08:30)
[2021-01-13] MEDS ORDERED: oxyCODONE/APAP 10/325MG (PERCOCET 10) TABLET PO PRN (08:30)
[2021-01-13] MEDS ORDERED: fentaNYL INJ 100 MCG/2 ML AMP IVP PRN (08:30)
[2021-01-13] MEDS ORDERED: ONDANSETRON 4 MG/2 ML (SDV) Z0FRAN IVP PRN (08:30)
[2021-01-13] MEDS ORDERED: MEASLES,MUMPS,RUBELLA 1 EA INJ SC ONE (08:30)
[2021-01-13] MEDS: KETOROLAC 30 MG/ML VIAL IVP SCH ×3 (08:50→21:14)
[2021-01-13] MEDS ORDERED: DOCUSATE SODIUM 100 MG (COLACE) CAP PO SCH (09:00)
[2021-01-13] MEDS: DOCUSATE SODIUM 100 MG (COLACE) CAP PO SCH (11:31)
--- NOTE | 2021-01-13 12:48 | OPERATIVE REPORT ---
DATE OF SERVICE: 01/13/2021 PREOPERATIVE DIAGNOSES: A 38-week with PIH and previous C-sections x2. POSTOPERATIVE DIAGNOSES: A 38-week with PIH and previous C-sections x2. OPERATIVE PROCEDURE: Repeat low transverse delivery of a viable female infant with Apgars of 8 and 9 at 1 and 5 minutes respectively, weight of 6 pounds 8 ounces. time of 07:47 and a cord blood pH of 7.25. OPERATIVE DESCRIPTION: With the patient in the supine position under satisfactory spinal analgesia, she was prepped and draped in the usual fashion for abdominal surgery. Car catheter was placed in the urinary bladder. Repeat Pfannenstiel incision was made through skin with the scalpel. The patient's abdomen was entered in the usual manner. Bladder retractor was placed in position, clean scalpel was used to make a 4 cm hysterotomy incision transversely across the lower uterine segment. That lower uterine segment was exceedingly thin, comprised of peritoneum and membranes. Clear fluid was released on hysterotomy. The incision was extended bluntly and then Steen forceps were applied to facilitate the delivery of a vigorous viable female infant. had Apgars and stats as noted above. The infant was bulb suctioned on delivery of the head and again on completion of delivery. Umbilical cord was doubly clamped and cut and the passed to the pediatric nurse in attendance for the delivery. Cord bloods were obtained. The placenta delivered spontaneously [place]. It was normal with a 3-vessel cord. The uterus was exteriorized, the interior wiped clean with a wet laparotomy sponge. Uterine incision was closed with running locked suture of 2-0 Vicryl. Hemostasis was complete. The uterus was returned to the abdominal cavity. All blood clot and debris were removed from the abdominal cavity. With sponge and needle counts correct and hemostasis assured, the anterior parietal peritoneum was closed with running suture of 2-0 Vicryl. Rectus muscles were closed with that suture as well. The rectus fascia was closed with 2-0 Vicryl, subcutaneous tissue was closed with 2-0 Vicryl and the skin was stapled. Sponge and needle counts were correct on completion of the procedure. Estimated blood loss was around 500 mL. The patient tolerated the procedure well and was transferred to the recovery room in a stable condition. The infant had been taken to the full term nursery under the care of the pediatric nurse. Job ID: [id number] DocumentID: [id number] Dictated Date: 01/13/2021 08:08:04 Area Cleaner Date: 01/13/2021 12:48:07 Dictated By: SHAKIR BOTELLO MD
[2021-01-14 01:10] VITALS: BP 131/78
[2021-01-14] MEDS: IBUPROFEN 800 MG (MOTRIN) TAB PO SCH ×3 (02:34→14:03)
--- NOTE | 2021-01-14 07:56 | Progress Note ---
Standard Progress Note Progress Notes/Assess & Plan Date Seen by a Provider: January 14, 2021 Time Seen by a Provider: 07:55 Progress/Assessment & Plan This patient is without complaint. She is ambulating, voiding, tolerating oral intake well and has good pain control. Patient is requesting discharge home. Vital Signs Date Time Temp Pulse Resp B/P (MAP) Pulse Ox O2 Delivery O2 Flow Rate FiO2 01/14/21 01:10 36.6 74 18 131/78 (95) 99 Room Air 01/13/21 21:00 36.2 88 18 135/88 (104) 100 Room Air 01/13/21 16:45 36.6 83 18 126/81 (96) 98 Room Air 01/13/21 12:20 36.5 86 16 128/77 (94) 99 Room Air 01/13/21 09:15 36.9 73 16 123/74 (90) 98 Room Air 01/13/21 08:59 36.9 18 122/75 (91) 100 Room Air 01/13/21 08:59 Room Air 01/13/21 08:44 Room Air 01/13/21 08:44 36.5 18 121/78 (92) 100 Room Air 01/13/21 08:37 37.0 76 16 100 Room Air 01/13/21 08:27 37.0 16 101/70 (80) 100 Room Air 01/13/21 08:27 Room Air 01/13/21 08:10 Room Air 01/13/21 08:10 36.1 16 93/69 (77) 100 Room Air I & O 01/14/21 07:00 Intake Total 5290 ml Output Total 1200 ml Balance 4090 ml Vital signs are stable. Patient is afebrile. Fundus is firm below the umbilicus and nontender. The surgical incision is clean dry and intact. Extremities show no clubbing cyanosis. There is no Homans' sign. Assessment and plan Postoperative day #1 status post repeat delivery doing well. Plan is to allow patient discharge home at her request we will have her follow-up in clinic on Wednesday, January 17, 2021 Final Diagnosis Repeat delivery at 38 weeks gestation SHAKIR BOTELLO MD January 14, 2021 07:56
[2021-01-14] MEDS ORDERED: IBUP-1780 PO (07:57)
[2021-01-14] MEDS ORDERED: DCS100C PO (07:57)
[2021-01-14] MEDS ORDERED: OXYC1TAB12 PO (07:57)
--- NOTE | 2021-01-14 07:59 | Discharge Inst-Surgical ---
Discharge Inst-Surgical Depart Medication/Instructions New, Converted or Re-Newed RX: RX on Chart Consults/Follow Up Patient Instructions: As directed Orders & Referrals Follow Up Appt: RTC On Wednesday, January 17, 2021 at 9:30 AM for incision check. Call to make follow up appt. for patient in 4 weeks. Wound Care: Patient will return to clinic on Sunday January 17, 2021 at 9:30 AM for removal of maru. Activity Per routine post instructions. Please call in RX to patient pharmacy. Diet as tolerated Patient may shower or tub bathe as desired. Continue home meds Activity Activity as Tolerated: No Diet Discharge Diet: No Restrictions SHAKIR BOTELLO MD January 14, 2021 07:59
[2021-01-14 08:15] VITALS: BP 128/78
[2021-01-14] MEDS: DOCUSATE SODIUM 100 MG (COLACE) CAP PO SCH ×2 (08:22→09:00)
--- NOTE | 2021-01-14 09:29 | Anesthesia-Regional Post-Op ---
Regional Patient Condition Mental Status: Alert, Oriented x3 Circulation: Same as Pre-Op Headache: Absent Sensation: Full Recovery Motor Block: Absent Post Op Complications Complications None Follow Up Care/Instructions Patient Instructions None needed. Anesthesia/Patient Condition Patient is doing well, no complaints, stable vital signs, no apparent adverse anesthesia problems. BACILIO WELLS DO January 14, 2021 09:29
[2021-01-14 14:00] VITALS: BP 124/73
[2021-01-14 17:55] VITALS: BP 124/73
== END 2021-01-14 17:55 | disposition home or self-care (01) | DRG 788 ==
LOC: LDRP 05:42
PROVIDERS: ADMIT Obstetrics & Gynecology; ATTEND Obstetrics & Gynecology
PROC: 10D00Z1 Extraction of Products of Conception, Low, Open Approach (ICD-10-PCS; principal; 2021-01-13 07:27)
DX: O34.211 Maternal care for low transverse scar from previous cesarean delivery (principal); Z3A.38 38 weeks gestation of pregnancy; Z37.0 Single live birth; O13.4 Gestational [pregnancy-induced] hypertension without significant proteinuria, complicating childbirth; O99.824 Streptococcus B carrier state complicating childbirth
CPT/HCPCS: 36415; 85025; 86850; 86900; 86901; 87081; 94664

== ENCOUNTER 2022-08-17 08:59 | Inpatient (IN) | payer MEDICAID ==
[~2022-08-17] VITALS: Ht 167 cm; Wt 95.3 kg
[2022-08-17] VITALS (10 sets, daily range): BP systolic 102–152; BP diastolic 58–90
[~2022-08-17 08:59] MED LIST changes: -CITRIC ACID/SOB CIT (BICITRA) 30 ML UDC ONE; +DOCU-239 PO; -FAMOTIDINE 20MG/2ML IV (PEPCID) ONE; -METOCLOPRAMIDE INJ 10 MG/2 ML (REGLAN) ONE; +OXYC1TAB12 PO; -ceFAZolin 2 GM IV Premixed 50 ML ONE; -metroNIDAZOLE 500MG/100ML IVPB 100 ML ONE
[2022-08-17] MEDS ORDERED: LACTATED RINGERS 1,000 ML IV PRN ×2 (10:00)
[2022-08-17] MEDS ORDERED: CITRIC ACID/SOB CIT (BICITRA) 30 ML UDC PO ONE (10:00)
[2022-08-17] MEDS ORDERED: CATHETER FLUSH 10 ML SYR IV PRN (10:00)
[2022-08-17] MEDS ORDERED: METOCLOPRAMIDE INJ 10 MG/2 ML (REGLAN) IV ONE (10:00)
[2022-08-17] MEDS ORDERED: FAMOTIDINE 20MG/2ML IV (PEPCID) IV ONE (10:00)
[2022-08-17 10:09] LABS: BILIRUBIN,URINE NEGATIVE (NEGATIVE); CLARITY,URINE CLEAR; COLOR,URINE YELLOW; GLUCOSE, URINE (UA) NEGATIVE (NEGATIVE); KETONES,URINE NEGATIVE (NEGATIVE); LEUKOCYTE ESTERASE ,URINE 1+ (NEGATIVE); NITRITE,URINE NEGATIVE (NEGATIVE); PROTEIN,URINE NEGATIVE (NEGATIVE)
[2022-08-17 10:13] LABS: BASOPHILS % (AUTO) 0 % (0-10); EOSINOPHILS # (AUTO) 0.1 10^3/uL (0.0-0.3); EOSINOPHILS % (AUTO) 1 % (0-10); HEMATOCRIT 29 % (35-52); HEMOGLOBIN 9.1 g/dL (11.5-16.0); LYMPHOCYTES # (AUTO) 2.3 10^3/uL (1.0-4.0); LYMPHOCYTES % (AUTO) 29 % (12-44); MEAN CORPUSCULAR HEMOGLOBIN 26 pg (25-34); MEAN CORPUSCULAR HGB CONC 31 g/dL (32-36); MEAN CORPUSCULAR VOLUME 82 fL (80-99); MEAN PLATELET VOLUME 9.8 fL (9.0-12.2); MONOCYTES # (AUTO) 0.6 10^3/uL (0.0-1.0); MONOCYTES % (AUTO) 8 % (0-12); NEUTROPHILS # (AUTO) 4.8 10^3/uL (1.8-7.8); NEUTROPHILS % (AUTO) 61 % (42-75); PLATELET COUNT 235 10^3/uL (130-400); WHITE BLOOD COUNT 7.9 10^3/uL (4.3-11.0)
[2022-08-17 10:21] LABS: BACTERIA,URINE FEW /HPF
--- NOTE | 2022-08-17 11:42 | History & Physical ---
History and Physical Date Seen by Provider: Aug 17, 2022 Time Seen by Provider: 11:39 This patient is a 27-year-old 4 para 2 2 female was seen in my clinic on this date at 37 weeks gestation. Previous ultrasound had demonstrated fetus appropriate for gestational age however there was an exceedingly thin ante rior lower uterine segment with an isthmocele. Patient presents today with complaint of progressive and persistent tearing and ripping sensation just above her pubic bone more so on the right than the left. That defect is present again on ultrasound today and appears to show leakage and the defect allowing amniotic fluid access to the peritoneal cavity. Patient was sent to labor and delivery for monitoring and management. Plan is to proceed with delivery due to uterine scar compromise GBS culture was negative Allergies are none Medications are vitamins Medical social and surgical history is all per the antepartum record HEENT exam is normal Neck is supple no lymphadenopathy no thyromegaly Abdomen is gravid soft nontender nondistended The suprapubic area is exceedingly fluctuant on palpation. Extremities show no clubbing or cyanosis. There is no Homans' sign. Pelvic exam is deferred Assessment and plan 37 weeks with uterine scar defect concerning for dehiscence. We will proceed wi th delivery 37 weeks with uterine scar separation Allergies and Home Medications Allergies Coded Allergies: No Known Drug Allergies (Unverified , 01/13/21) Patient Home Medication List Home Medication List Reviewed: Yes Vit W-Ca,Fe,FA(<1 mg) ( Formula) 1 Each Tablet, 1 EACH PO DAILY, (Reported) Entered as Reported by: BARBARA BE on 01/06/21 1027 Last Action: Last Taken Edited Discontinued Medications Docusate Sodium (Dok) 100 Mg Capsule, 100 MG PO BID Discontinued Reason: No Longer Taking Prescribed by: SHAKIR CASTILLO on 01/14/21756 Last Action: Discontinued Ibuprofen (Ibuprofen) 800 Mg Tablet, 800 MG PO Q6H Discontinued Reason: No Longer Taking Prescribed by: SHAKIR CASTILLO on 01/14/21756 Last Action: Discontinued Oxycodone HCl/Acetaminophen (Percocet 10-325 mg Tablet) 1 Each Tablet, 1 TAB PO Q4HR PRN for Pain Discontinued Reason: No Longer Taking Prescribed by: SHAKIR CASTILLO on 01/14/21756 Last Action: Discontinued SHAKIR BOTELLO MD Aug 17, 2022 11:42
[2022-08-17] MEDS ORDERED: OXYTOCIN PRE-MIX DRIP 1,000 ML IV ONE (11:45)
[2022-08-17] MEDS ORDERED: BUPIVACAINE 0.25% 30 ML (SENSORCAINE) VIAL ONE (11:45)
[2022-08-17] MEDS ORDERED: D5 LR IV SOLUTION 1,000 ML IV SCH ×2 (11:45→13:15)
[2022-08-17] MEDS ORDERED: fentaNYL INJ 100 MCG/2 ML AMP ONE (11:45)
[2022-08-17] MEDS ORDERED: metroNIDAZOLE 500MG/100ML IVPB 100 ML IV ONE (11:45)
[2022-08-17] MEDS ORDERED: KETOROLAC 30 MG/ML VIAL ONE (11:45)
[2022-08-17] MEDS ORDERED: ceFAZolin INJECTION 2,000 MG in NS (IVPB) 50 ML IV ONE (11:45)
[2022-08-17] MEDS ORDERED: ONDANSETRON 4 MG/2 ML (SDV) Z0FRAN ONE (11:45)
[2022-08-17] MEDS ORDERED: METOCLOPRAMIDE INJ 10 MG/2 ML (REGLAN) IV PRN (13:00)
[2022-08-17] MEDS ORDERED: morphine INJ 10 MG/ML 1ML (SYR OR VIAL) IVP ONE (13:00)
[2022-08-17] MEDS ORDERED: NALOXONE 0.4 MG/ML 1 ML (NARCAN) VIAL IV PRN ×2 (13:00)
[2022-08-17] MEDS ORDERED: diphenhydrAMINE 50 MG/ML INJ (BENADRYL) IV PRN (13:00)
[2022-08-17] MEDS ORDERED: ONDANSETRON 4 MG/2 ML (SDV) Z0FRAN IV PRN (13:00)
[2022-08-17] MEDS ORDERED: ONDANSETRON 4 MG/2 ML (SDV) Z0FRAN IVP PRN (13:15)
[2022-08-17] MEDS ORDERED: TETANUS,DIPTH,PERTUSS P/F (BOOSTRIX) 0.5 ML VIAL IM ONE (13:15)
[2022-08-17] MEDS ORDERED: OXYTOCIN PRE-MIX DRIP 500 ML IV SCH (13:15)
[2022-08-17] MEDS: KETOROLAC 30 MG/ML VIAL IV SCH ×2 (14:39→21:16)
[2022-08-17] MEDS: oxyCODONE/APAP 10/325MG (PERCOCET 10) TABLET PO PRN (15:58)
[2022-08-17] MEDS: DOCUSATE SODIUM 100 MG (COLACE) CAP PO SCH (21:16)
--- NOTE | 2022-08-18 00:21 | OPERATIVE REPORT ---
DATE OF SERVICE: 08/17/2022 PREOPERATIVE DIAGNOSIS: Term at 37 weeks' gestation with 2 previous C-sections and with compromised uterine scar. POSTOPERATIVE DIAGNOSIS: Term at 37 weeks' gestation with 2 previous C-sections and with compromised uterine scar. PROCEDURE: Repeat low transverse delivery of a viable male with Apgars of 8 and 9 at 1 and 5 minutes respectively, weight of 7 pounds 7 ounces. time of 12:22 and cord blood pH of 7.28. DESCRIPTION OF PROCEDURE: With the patient in supine position, under satisfactory spinal analgesia and prepped and draped in the usual fashion for abdominal surgery. A Car catheter was placed in the urinary bladder. Repeat Pfannenstiel incision made through the skin with a scalpel. The patient's abdomen was entered in the usual manner. Bladder retractor was placed into position. The peritoneum over the uterus was intact and there was fluid between the peritoneum and the anterior surface of the uterus approximately 2.5-3 cm in thickness. On opening the peritoneum, that fluid was released and there was a defect in the anterior portion of the lower uterine segment scar approximately 2 cm across, where the fluid had been leaking out under the peritoneum. That opening was extended bluntly. Steen forceps were applied to facilitate delivery of a vigorous viable male infant with Apgars and stats as noted above. The was bulb suctioned on delivery of the head, again on completion of the delivery. The umbilical cord was doubly clamped and cut and the infant passed to the pediatric nurse in attendance for delivery. Cord bloods were obtained. The placenta delivered spontaneously with Soto. It was normal with a 3-vessel cord. The uterus was exteriorized and the interior wiped clean with wet laparotomy sponges. Uterine incision was then closed with a running locked suture of 2-0 Vicryl, care was taken to ensure reapproximation of adequate and superior and inferior uterine wall myometrium with the closure. With that done, the uterus was returned to abdominal cavity. All blood clot and debris was removed through the abdominal cavity. Sponge and needle counts correct and hemostasis been assured. The anterior parietal peritoneum was closed with a running suture of 2-0 Vicryl. Rectus muscles were closed with that suture. Rectus fascia was closed with 2-0 Vicryl. Subcutaneous tissue was closed with 2-0 Vicryl and the skin was stapled. Sponge and needle counts were correct on completion of the procedure. Blood loss was around 250 mL. The patient tolerated the procedure well and was transferred to the recovery room in stable condition. The infant had been taken stable to the full term nursery under the care of the pediatric nurse. Job ID: [id number] DocumentID: [id number] Dictated Date: 08/17/2022 12:59:25 Instructor [employer]room [employer] Date: 08/18/2022 00:19:00 Dictated By: SHAKIR BOTELLO MD
[2022-08-18 03:59] VITALS: BP 127/84
[2022-08-18] MEDS: KETOROLAC 30 MG/ML VIAL IV SCH (03:59)
--- NOTE | 2022-08-18 07:56 | Progress Note ---
Standard Progress Note Progress Notes/Assess & Plan Date Seen by a Provider: Aug 18, 2022 Time Seen by a Provider: 07:56 Progress/Assessment & Plan Patient is without complaint. She is ambulating, voiding, tolerating oral intake well and has good pain control. Vital Signs Date Time Temp Pulse Resp B/P (MAP) Pulse Ox O2 Delivery O2 Flow Rate FiO2 08/18/22 03:59 36.5 76 18 127/84 (98) 98 Room Air 08/17/22 23:34 36.0 71 18 152/90 (110) 98 Room Air 08/17/22 19:30 36.2 75 18 127/80 (96) 99 Room Air 08/17/22 14:30 36.8 73 18 138/90 (106) 100 Room Air 08/17/22 13:30 Room Air 08/17/22 13:30 36.3 18 106/71 (83) 98 Room Air 08/17/22 13:15 36.4 18 115/68 (84) 99 Room Air 08/17/22 13:15 Room Air 08/17/22 13:00 Room Air 08/17/22 13:00 36.3 18 102/73 (83) 99 Room Air 08/17/22 12:45 36.1 18 111/58 (75) 99 Room Air 08/17/22 12:45 Room Air 08/17/22 10:30 36.6 82 16 114/72 (86) 99 Room Air 08/17/22 10:06 36.2 103 20 99 Room Air 08/17/22 09:00 36.2 103 20 122/77 (92) 99 Room Air I & O 08/18/22 07:00 Intake Total 3150 ml Output Total 830 ml Balance 2320 ml Vital signs are stable. Patient is afebrile. The abdomen is benign. The surgical incision is clean dry and intact. Fundus is firm below the umbilicus and nontender. Extremities show no clubbing or cyanosis. There is no Homans' sign. Assessment and plan Postoperative day #1 status post repeat delivery at 37+ weeks gestation. Patient is doing well will have routine convalescent care SHAKIR BOTELLO MD Aug 18, 2022 07:56
[2022-08-18] MEDS ORDERED: OXYC1TAB12 PO (07:58)
[2022-08-18] MEDS ORDERED: IBUP-1780 PO (07:58)
[2022-08-18] MEDS ORDERED: DOCU100C37 PO (07:58)
--- NOTE | 2022-08-18 07:59 | Discharge Inst-Surgical ---
Discharge Inst-Surgical Depart Medication/Instructions New, Converted or Re-Newed RX: Transmitted to Pharmacy Consults/Follow Up Orders & Referrals Follow Up Appt: RTC 1 week for incision check. Call to make follow up appt. for patient in 4 weeks. Wound Care: Remove maru, apply benzoin and steri strips. Activity Per routine post instructions. Diet as tolerated Patient may shower or tub bathe as desired. Continue home meds Activity Activity as Tolerated: No Diet Discharge Diet: No Restrictions SHAKIR BOTELLO MD Aug 18, 2022 07:59
[2022-08-18 08:40] VITALS: BP 110/65
[2022-08-18] MEDS: DOCUSATE SODIUM 100 MG (COLACE) CAP PO SCH ×2 (08:49→20:42)
[2022-08-18] MEDS: IBUPROFEN 800 MG (MOTRIN) TAB PO SCH ×2 (10:10→20:42)
[2022-08-18 12:20] VITALS: BP 112/74
[2022-08-18] MEDS ORDERED: IBUPROFEN 800 MG (MOTRIN) TAB PO SCH (13:15)
--- NOTE | 2022-08-18 14:51 | Anesthesia-Regional Post-Op ---
Regional Patient Condition Mental Status: Alert, Oriented x3 Circulation: Same as Pre-Op Headache: Absent Sensation: Full Recovery Motor Block: Absent Post Op Complications Complications None Follow Up Care/Instructions Patient Instructions None needed. Anesthesia/Patient Condition Patient is doing well, no complaints, stable vital signs, no apparent adverse anesthesia problems. No complications reported per nursing. SERGEY BUCKLEY CRNA Aug 18, 2022 14:51
[2022-08-18] MEDS: oxyCODONE/APAP 10/325MG (PERCOCET 10) TABLET PO PRN (14:57)
[2022-08-18 18:05] VITALS: BP 123/68
[2022-08-18 20:42] VITALS: BP 131/84
[2022-08-19] MEDS: IBUPROFEN 800 MG (MOTRIN) TAB PO SCH ×3 (00:45→09:11)
[2022-08-19 02:59] VITALS: BP 126/80
--- NOTE | 2022-08-19 05:12 | Progress Note ---
Standard Progress Note Progress Notes/Assess & Plan Date Seen by a Provider: Aug 19, 2022 Time Seen by a Provider: 05:11 Progress/Assessment & Plan Patient is without complaint. She is ambulating, voiding, tolerating oral intake well and has good pain control. Vital Signs Date Time Temp Pulse Resp B/P (MAP) Pulse Ox O2 Delivery O2 Flow Rate FiO2 08/18/22 03:59 36.5 76 18 127/84 (98) 98 Room Air 08/17/22 23:34 36.0 71 18 152/90 (110) 98 Room Air 08/17/22 19:30 36.2 75 18 127/80 (96) 99 Room Air 08/17/22 14:30 36.8 73 18 138/90 (106) 100 Room Air 08/17/22 13:30 Room Air 08/17/22 13:30 36.3 18 106/71 (83) 98 Room Air 08/17/22 13:15 36.4 18 115/68 (84) 99 Room Air 08/17/22 13:15 Room Air 08/17/22 13:00 Room Air 08/17/22 13:00 36.3 18 102/73 (83) 99 Room Air 08/17/22 12:45 36.1 18 111/58 (75) 99 Room Air 08/17/22 12:45 Room Air 08/17/22 10:30 36.6 82 16 114/72 (86) 99 Room Air 08/17/22 10:06 36.2 103 20 99 Room Air 08/17/22 09:00 36.2 103 20 122/77 (92) 99 Room Air I & O 08/18/22 07:00 Intake Total 3150 ml Output Total 830 ml Balance 2320 ml Vital signs are stable. Patient is afebrile. The abdomen is benign. The surgical incision is clean dry and intact. Fundus is firm below the umbilicus and nontender. Extremities show no clubbing or cyanosis. There is no Homans' sign. Assessment and plan Postoperative day #1 status post repeat delivery at 37+ weeks gestation. Patient is doing well will have routine convalescent care August 19, 2022 Patient is without complaint. She is ambulating, voiding, tolerating oral i ntake well has good pain control. Patient is requesting discharge home. Vital Signs Date Time Temp Pulse Resp B/P (MAP) Pulse Ox O2 Delivery O2 Flow Rate FiO2 08/19/22 02:59 36.0 77 18 126/80 (95) 98 Room Air 08/18/22 20:42 36.4 100 18 131/84 (100) 98 Room Air 08/18/22 18:05 36.6 72 18 123/68 (86) 98 Room Air 08/18/22 12:20 36.5 85 18 112/74 (87) 99 Room Air 08/18/22 08:40 36.6 92 16 110/65 (80) 98 Room Air I & O 08/19/22 07:00 Intake Total 950 ml Output Total 800 ml Balance 150 ml Vital signs are stable. Patient is afebrile. The abdomen is benign. The surgical incision is clean dry and intact. Fundus is firm below the umbilicus and nontender. Extremities show no clubbing or cyanosis. There is no Homans' sign. Assessment and plan /postoperative day #2 status post repeat delivery at 37 weeks gestation. Plan is for discharge home with follow-up in clinic Final Diagnosis 37-week repeat SHAKIR BOTELLO MD Aug 19, 2022 05:12
[2022-08-19] MEDS: DOCUSATE SODIUM 100 MG (COLACE) CAP PO SCH (09:11)
[2022-08-19 09:13] VITALS: BP 131/78
== END 2022-08-19 12:55 | disposition home or self-care (01) | DRG 788 ==
LOC: LDRP 08:59
PROVIDERS: ADMIT Obstetrics & Gynecology; ATTEND Obstetrics & Gynecology
PROC: 10D00Z1 Extraction of Products of Conception, Low, Open Approach (ICD-10-PCS; principal; 2022-08-17 11:56)
DX: O90.0 Disruption of cesarean delivery wound (principal); O34.22 Maternal care for cesarean scar defect (isthmocele); Z37.0 Single live birth; Z3A.37 37 weeks gestation of pregnancy
CPT/HCPCS: 36415; 81000; 85025; 86850; 86900; 86901; 87081; 87088